=== PATIENT | female | born 1965 | race Caucasian/White ===

== ENCOUNTER 2022-02-01 18:58 | Emergency (ER) | payer OTHER ==
[~2022-02-01] VITALS: Ht 172.7 cm; Wt 104.5 kg
[2022-02-01] MEDS ORDERED: traMADol 50 MG TABLET PO ONE (19:15)
[2022-02-01 19:20] VITALS: BP 154/85
--- NOTE | 2022-02-01 19:25 | PHYS DOC ---
Past History Past Medical History: Arthritis (TROY SPENCER APRN) Past Surgical History: Additional Past Surgical Histo: r knee, r elbow (TROY SPENCER APRN) Smoking: Non-smoker Alcohol Use: None Drug Use: None (TROY SPENCER APRN) General Adult EDM: Chief Complaint: KNEE INJURY HPI: HPI: Patient is a 56-year-old female that presents today with left knee pain. Patient states that her knee started bothering her about proximately 1 week ago, she does not recall any injury or trauma to this knee. Patient states the knee hurts on the outer aspect of the knee and over the kneecap area, she states she has been wearing a knee brace that she bought but that has not been helping very much, she is also been taking naproxen at home for pain and she took some about 3 PM today. Patient does have a past medical history of having arthritis, she has not followed up with a primary care physician regarding the pain. (TROY SPENCER APRN) Review of Systems: Review of Systems: Constitutional: Denies fever or chills Eyes: Denies change in visual acuity HENT: Denies nasal congestion or sore throat Respiratory: Denies cough or shortness of breath Cardiovascular: Denies chest pain or edema GI: Denies abdominal pain, nausea, vomiting, bloody stools or diarrhea : Denies dysuria Musculoskeletal: Left knee pain Integument: Denies rash Neurologic: Denies headache, focal weakness or sensory changes Endocrine: Denies polyuria or polydipsia Lymphatic: Denies swollen glands Psychiatric: Denies depression or anxiety (TROY SPENCER APRN) Current Medications: Current Meds: Current Medications Medications (Trade) Dose Ordered Sig/Amy Start Time Stop Time Status Last Admin Dose Admin Tramadol HCl (Ultram) 50 mg 1X ONCE 02/01/22 19:15 02/01/22 19:16 UNV (TROY SPENCER APRN) Physical Exam: PE: Constitutional: Well developed, well nourished, no acute distress, non-toxic maty earance. [] HENT: Normocephalic, atraumatic, bilateral external ears normal, oropharynx moist, no oral exudates, nose normal. [] Eyes: PERRLA, EOMI, conjunctiva normal, no discharge. [] Neck: Normal range of motion, no tenderness, supple, no stridor. [] Cardiovascular:Heart rate regular rhythm, no murmur [] Lungs & Thorax: Bilateral breath sounds clear to auscultation [] Abdomen: Bowel sounds normal, soft, no tenderness, no masses, no pulsatile masses. [] Skin: Warm, dry, no erythema, no rash. [] Back: No tenderness, no CVA tenderness. [] Extremities: Left knee tenderness noted on the lateral aspect and over the patellar tendon, this small amount of swelling is noted over the lateral aspect of the knee, knee is stable at this time patient has full range of motion but does have pain with bending. Posterior tibial pulse in the left leg is 2+, cap refill is less than 2 seconds. Patient is able to ambulate on this leg it is somewhat painful. Neurologic: Alert and oriented X 3, normal motor function, normal sensory function, no focal deficits noted. [] Psychologic: Affect normal, judgement normal, mood normal. [] (TROY SPENCER APRN) Current Patient Data: Vital Signs: Vital Signs Date Time Temp Pulse Resp B/P (MAP) Pulse Ox O2 Delivery O2 Flow Rate FiO2 02/01/22 19:20 98.2 80 18 154/85 (108) 92 Room Air 02/01/22 19:15 18 Room Air (TROY SPENCER APRN) EKG: EKG: [] (TROY SPENCER APRN) Radiology/Procedures: Radiology/Procedures: REASON: left lateral knee pain no trauma PROCEDURE: KNEE LEFT 4V Exam: Left knee 4 views INDICATION: Left lateral knee pain TECHNIQUE: Frontal, lateral, oblique and sunrise views of the left knee Comparisons: None FINDINGS: Bone mineralization is normal. No acute or healed fractures. Soft tissues are unremarkable. Joint spaces are well-maintained. IMPRESSION: No acute osseous abnormality. Electronically signed by: Ceci Cuevas MD (02/01/2022 7:48 PM) UDAY [] (TROY SPENCER APRN) Heart Score: C/O Chest Pain: N/A Risk Factors: Risk Factors: DM, Current or recent (<one month) smoker, HTN, HLP, family history of CAD, obesity. Risk Scores: Score 0 - 3: 2.5% MACE over next 6 weeks - Discharge Home Score 4 - 6: 20.3% MACE over next 6 weeks - Admit for Clinical Observation Score 7 - 10: 72.7% MACE over next 6 weeks - Early Invasive Strategies (TROY SPENCER APRN) Course & Med Decision Making: Course & Med Decision Making Pertinent Labs and Imaging studies reviewed. (See chart for details) 1944 reviewed radiological results with patient did inform her she has some arthritic changes in her left knee and these appear to be chronic in nature. Patient will need to follow-up with her primary care physician for further management of her left knee pain I did suggest a supportive knee brace to help with comfort, also [id number] Tylenol and ibuprofen as needed for pain. Also did recommend the krkt-mle-iyyppke Lidoderm patches to help with localized pain relief. Patient verbalized understanding of this and agreeable to the plan of care. (TROY SPENCER APRN) Course & Med Decision Making Did not see or evaluate patient. Did not discuss patient with GENERAL STUDIES PROGRAM CHAIR. Generally agree with GENERAL STUDIES PROGRAM CHAIR's work-up and disposition per note. (SARAH GIRON MD) Dragon Disclaimer: Dragon Disclaimer: This electronic medical record was generated, in whole or in part, using a voice recognition dictation system. (TROY SPENCER APRN) Departure Departure: Impression: Primary Impression: Osteoarthritis Qualified Codes: M17.12 - Unilateral primary osteoarthritis, left knee Disposition: HOME / SELF CARE / HOMELESS Condition: STABLE Referrals: DELFINO ABEL DO, M[facility] (PCP) Patient Instructions: Knee Pain Additional Instructions: Ice 20 minutes on 3-4 times daily to help with localized pain relief [id number] Lidoderm patches 12 hours on 12 hours off to help with lo calized pain relief Tylenol and/or ibuprofen as needed for pain, take as labeled directed Rmbd-dyv-[id number] knee brace that will offer some comfort and support. Follow-up with your primary care physician for further management of your left knee pain. TROY SPENCER APRN Feb 01, 2022 19:25 SARAH GIRON MD Feb 02, 2022 00:12
--- NOTE | 2022-02-01 19:51 | RAD ---
Exam: Left knee 4 views INDICATION: Left lateral knee pain TECHNIQUE: Frontal, lateral, oblique and sunrise views of the left knee Comparisons: None FINDINGS: Bone mineralization is normal. No acute or healed fractures. Soft tissues are unremarkable. Joint spa raphael are well-maintained. IMPRESSION: No acute osseous abnormality. Electronically signed by: Ceci Cuevas MD (02/01/2022 7:48 PM) [email or web address]
== END 2022-02-01 19:53 | disposition home or self-care (01) ==
LOC: ER 18:58
DX: M17.12 Unilateral primary osteoarthritis, left knee (principal)
CPT/HCPCS: 73564; 99283